=== PATIENT | male | born 1945 ===

== ENCOUNTER 2023-08-04 11:26 | Inpatient (IN) | payer MEDICARE ==
[2023-08-04 12:21] LABS: #Basophils 0.1 thou/uL (0.0-0.2); #Eosinphils 0.2 thou/uL (0.0-0.7); #Monocytes 1.5 thou/uL (0.11-0.59); #Neutrophils 11.5 thou/uL (1.40-6.50); %Basophils 0.6 % (0.0-1.0); %Eosinophils 1.6 % (0.0-10.0); %Lymphocytes 10.4 % (21.0-51.0); %Monocytes 9.5 % (0.0-10.0); %Neutrophils 75.2 % (42.0-75.0); Hematocrit 42.4 % (42.0-52.0); Hemoglobin 14.7 g/dL (14.0-18.0); Mean Corpuscular HGB CONC 34.7 g/dL (32.0-36.0); Mean Corpuscular Hemoglobin 32.5 pg (27.0-31.0); Mean Corpuscular Volume 93.6 fl (78.0-98.0); Mean Platelet Volume 9.7 fL (7.4-10.4); Platelet Count 168 10x3/uL (130-400); RBC Distribution Width 13.9 % (11.5-14.5); Red Blood Cell (RBC) Count 4.53 mill/uL (4.70-6.10); White Blood Cell (WBC) Count 15.3 10x3/uL (4.8-10.8)
[2023-08-04 12:46] LABS: Anion Gap 14 mmol/L (10-20); Carbon Dioxide 25 mmol/L (23-31); Chloride 96 mmol/L (98-107); Potassium 3.9 mmol/L (3.5-5.1); Sodium 131 mmol/L (136-145)
[2023-08-04 12:47] LABS: ALT (SGPT) 22 U/L (8-55); AST (SGOT) 22 U/L (5-34); Alkaline Phosphatase 127 U/L (40-110); BUN (Urea Nitrogen) 58 mg/dL (8.4-25.7); Bilirubin, Total 1.8 mg/dL (0.2-1.2); Calc. Creatinine Clearance 0 mL/min (70-130); Calcium 12.1 mg/dL (7.8-10.44); Estimated GFR 20; Globulin 2.8 g/dL (2.4-3.5); Glucose 110 mg/dL (83-110); Lipase 35 U/L (8-78); Magnesium 2.5 mg/dL (1.6-2.6); Protein, Total 6.8 g/dL (5.8-8.1)
[2023-08-04 12:50] LABS: Troponin I 0.013 ng/mL (< 0.028)
[2023-08-04] MEDS ORDERED: Ondansetron ODT 4 MG TAB PO PRN (14:53)
[2023-08-04] MEDS ORDERED: Ondansetron PF 4 MG/2 ML Vial IVP PRN (14:53)
[2023-08-04] MEDS ORDERED: Sodium Chloride 0.9% 1,000 ML IV SCH ×2 (15:00→17:36)
[2023-08-04] MEDS ORDERED: Piperacillin/Tazobactam 3.375 GM in Sodium Chloride 0.9% 100 ML IVPB SCH (15:30)
[2023-08-04] MEDS ORDERED: Piperacillin/Tazobactam 4.5 GM VIAL ONE (16:23)
[2023-08-04] MEDS ORDERED: Sodium Chloride 0.9% 100 ML ONE (16:23)
[2023-08-04 21:50] VITALS: BMI 29.5
[2023-08-04] MEDS: Piperacillin/Tazobactam 3.375 GM in Sodium Chloride 0.9% 100 ML IVPB SCH (23:50)
[2023-08-05 04:46] LABS: #Basophils 0.1 thou/uL (0.0-0.2); #Eosinphils 0.2 thou/uL (0.0-0.7); #Monocytes 1.2 thou/uL (0.11-0.59); #Neutrophils 10.3 thou/uL (1.40-6.50); %Basophils 0.6 % (0.0-1.0); %Eosinophils 1.2 % (0.0-10.0); %Lymphocytes 7.7 % (21.0-51.0); %Monocytes 9.4 % (0.0-10.0); Hematocrit 36.8 % (42.0-52.0); Hemoglobin 12.4 g/dL (14.0-18.0); Mean Corpuscular HGB CONC 33.7 g/dL (32.0-36.0); Mean Corpuscular Hemoglobin 32.3 pg (27.0-31.0); Mean Corpuscular Volume 95.8 fl (78.0-98.0); Mean Platelet Volume 10.2 fL (7.4-10.4); Platelet Count 153 10x3/uL (130-400); RBC Distribution Width 13.8 % (11.5-14.5); Red Blood Cell (RBC) Count 3.84 mill/uL (4.70-6.10)
[2023-08-05 05:21] LABS: Anion Gap 15 mmol/L (10-20); BUN (Urea Nitrogen) 58 mg/dL (8.4-25.7); Calc. Creatinine Clearance 24 mL/min (70-130); Calcium 10.9 mg/dL (7.8-10.44); Carbon Dioxide 25 mmol/L (23-31); Chloride 97 mmol/L (98-107); Estimated GFR 18; Glucose 110 mg/dL (83-110); Potassium 4.4 mmol/L (3.5-5.1); Sodium 133 mmol/L (136-145)
[2023-08-05 05:25] LABS: Bilirubin Negative (Negative); Blood, Urine Negative (Negative); CAUTI Indications for Culture Dysuria,urgency,freq; Clarity Clear (Clear); Glucose, Urine (Dipstick) Normal (Negative); Ketone, Urine Negative (Negative); Leukocyte Negative Leu/uL (Negative); Nitrite Negative (Negative); Protein, Urine (Dipstick) Negative (Neg-Trace); RBC/HPF 0-3 HPF (0-3); Specific Gravity, Urine 1.016 (1.002-1.036); Squamous Epithelial None Seen HPF (0-3); Urobilinogen Normal mg/dL (Less than 2); WBC/HPF None Seen HPF (0-3); pH, Urine 6.5 (5.0-9.0)
[2023-08-05 05:26] LABS: Bacteria/HPF 1+ HPF (None Seen)
[2023-08-05 05:27] LABS: Urine Culture Reflex No No
[2023-08-05] MEDS: Piperacillin/Tazobactam 3.375 GM in Sodium Chloride 0.9% 100 ML IVPB SCH ×3 (07:59→23:47)
[2023-08-05] MEDS: Ferrous Sulfate 325 MG TAB PO SCH (08:26)
[2023-08-05] MEDS: DULoxetine 60 MG CAP PO SCH (08:26)
[2023-08-05] MEDS: Tamsulosin HCl 0.4 MG CAP PO SCH (08:26)
[2023-08-05] MEDS: Folic Acid 1 MG TAB PO SCH (08:26)
[2023-08-05] MEDS: Finasteride 5 MG TAB PO SCH (08:27)
[2023-08-05] MEDS: Allopurinol 300 MG TAB PO SCH (08:28)
[2023-08-05] MEDS: Lactulose 20 GM (30 mL) UDCUP PO SCH (08:37)
[2023-08-05] MEDS ORDERED: Sodium Chloride 0.9% 1,000 ML IV SCH (11:30)
[2023-08-05 16:17] LABS: Creatinine, Urine 75.91 mg/dL (63-166)
[2023-08-05] MEDS: Sodium Chloride 0.9% 1,000 ML IV SCH ×2 (17:52→23:23)
[2023-08-06] MEDS: Acetaminophen 325 MG TAB PO PRN (05:04)
[2023-08-06 05:10] LABS: #Basophils 0.1 thou/uL (0.0-0.2); #Eosinphils 0.3 thou/uL (0.0-0.7); #Monocytes 0.9 thou/uL (0.11-0.59); #Neutrophils 6.6 thou/uL (1.40-6.50); %Basophils 0.9 % (0.0-1.0); %Lymphocytes 11.4 % (21.0-51.0); %Monocytes 9.7 % (0.0-10.0); %Neutrophils 72.2 % (42.0-75.0); Hemoglobin 11.4 g/dL (14.0-18.0); Mean Corpuscular HGB CONC 32.6 g/dL (32.0-36.0); Mean Corpuscular Hemoglobin 31.5 pg (27.0-31.0); Mean Corpuscular Volume 96.7 fl (78.0-98.0); Mean Platelet Volume 9.8 fL (7.4-10.4); Platelet Count 129 10x3/uL (130-400); Red Blood Cell (RBC) Count 3.62 mill/uL (4.70-6.10); White Blood Cell (WBC) Count 9.1 10x3/uL (4.8-10.8)
[2023-08-06 05:36] LABS: Anion Gap 11 mmol/L (10-20); BUN (Urea Nitrogen) 49 mg/dL (8.4-25.7); Calc. Creatinine Clearance 27 mL/min (70-130); Calcium 9.3 mg/dL (7.8-10.44); Carbon Dioxide 26 mmol/L (23-31); Chloride 103 mmol/L (98-107); Estimated GFR 21; Glucose 91 mg/dL (83-110); Potassium 3.9 mmol/L (3.5-5.1); Sodium 136 mmol/L (136-145)
[2023-08-06] MEDS: Lactulose 20 GM (30 mL) UDCUP PO SCH (08:53)
[2023-08-06] MEDS: Allopurinol 300 MG TAB PO SCH (08:53)
[2023-08-06] MEDS: Tamsulosin HCl 0.4 MG CAP PO SCH (08:53)
[2023-08-06] MEDS: Ferrous Sulfate 325 MG TAB PO SCH (08:53)
[2023-08-06] MEDS: Finasteride 5 MG TAB PO SCH (08:53)
[2023-08-06] MEDS: DULoxetine 60 MG CAP PO SCH (08:53)
[2023-08-06] MEDS: Folic Acid 1 MG TAB PO SCH (08:53)
[2023-08-06] MEDS: Sodium Chloride 0.9% 1,000 ML IV SCH ×3 (11:23→23:50)
[2023-08-06] MEDS: Piperacillin/Tazobactam 3.375 GM in Sodium Chloride 0.9% 100 ML IVPB SCH ×2 (13:03→23:47)
[2023-08-07 04:55] LABS: #Eosinphils 0.2 thou/uL (0.0-0.7); #Monocytes 0.7 thou/uL (0.11-0.59); #Neutrophils 4.9 thou/uL (1.40-6.50); %Basophils 0.6 % (0.0-1.0); %Eosinophils 3.3 % (0.0-10.0); %Lymphocytes 14.7 % (21.0-51.0); %Monocytes 9.3 % (0.0-10.0); %Neutrophils 69.4 % (42.0-75.0); Hematocrit 34.2 % (42.0-52.0); Hemoglobin 11.1 g/dL (14.0-18.0); Mean Corpuscular HGB CONC 32.5 g/dL (32.0-36.0); Mean Corpuscular Hemoglobin 32.2 pg (27.0-31.0); Mean Corpuscular Volume 99.1 fl (78.0-98.0); Platelet Count 121 10x3/uL (130-400); RBC Distribution Width 14.1 % (11.5-14.5); Red Blood Cell (RBC) Count 3.45 mill/uL (4.70-6.10)
[2023-08-07 05:23] LABS: Anion Gap 9 mmol/L (10-20); BUN (Urea Nitrogen) 39 mg/dL (8.4-25.7); Calc. Creatinine Clearance 31 mL/min (70-130); Calcium 8.5 mg/dL (7.8-10.44); Carbon Dioxide 25 mmol/L (23-31); Chloride 109 mmol/L (98-107); Estimated GFR 24; Glucose 108 mg/dL (83-110); Potassium 3.9 mmol/L (3.5-5.1); Sodium 139 mmol/L (136-145)
[2023-08-07] MEDS: Acetaminophen 325 MG TAB PO PRN (05:32)
[2023-08-07] MEDS: Allopurinol 300 MG TAB PO SCH (08:24)
[2023-08-07] MEDS: DULoxetine 60 MG CAP PO SCH (08:25)
[2023-08-07] MEDS: Lactulose 20 GM (30 mL) UDCUP PO SCH (08:26)
[2023-08-07] MEDS: Tamsulosin HCl 0.4 MG CAP PO SCH (08:26)
[2023-08-07] MEDS: Finasteride 5 MG TAB PO SCH (08:26)
[2023-08-07] MEDS: Ferrous Sulfate 325 MG TAB PO SCH (08:26)
[2023-08-07] MEDS: Folic Acid 1 MG TAB PO SCH (08:26)
[2023-08-07] MEDS: Sodium Chloride 0.9% 1,000 ML IV SCH (12:35)
[2023-08-07] MEDS: Piperacillin/Tazobactam 3.375 GM in Sodium Chloride 0.9% 100 ML IVPB SCH ×2 (12:39→23:07)
[2023-08-08] MEDS: DULoxetine 60 MG CAP PO SCH (08:10)
[2023-08-08] MEDS: Ferrous Sulfate 325 MG TAB PO SCH (08:10)
[2023-08-08] MEDS: Tamsulosin HCl 0.4 MG CAP PO SCH (08:10)
[2023-08-08] MEDS: Folic Acid 1 MG TAB PO SCH (08:10)
[2023-08-08] MEDS: Allopurinol 300 MG TAB PO SCH (08:10)
[2023-08-08] MEDS: Finasteride 5 MG TAB PO SCH (08:10)
[2023-08-08 08:11] LABS: Albumin 3.2 g/dL (3.4-4.8); Anion Gap 12 mmol/L (10-20); BUN (Urea Nitrogen) 29 mg/dL (8.4-25.7); BUN/Creatinine Ratio 13.06; Calc. Creatinine Clearance 36 mL/min (70-130); Calcium 8.3 mg/dL (7.8-10.44); Carbon Dioxide 21 mmol/L (23-31); Chloride 111 mmol/L (98-107); Estimated GFR 30; Glucose 93 mg/dL (83-110); Phosphorus 2.3 mg/dL (2.3-4.7); Potassium 4.3 mmol/L (3.5-5.1); Sodium 140 mmol/L (136-145)
[2023-08-08] MEDS: Lactulose 20 GM (30 mL) UDCUP PO SCH (08:13)
[2023-08-08] MEDS ORDERED: FLU VACC QS2023(65UP)/MF59C/PF 60 MCG/0.5 ML SYRINGE IM ONE (09:00)
[2023-08-08] MEDS: Sodium Bicarbonate Tab 325 MG TAB PO SCH ×2 (12:07→20:42)
[2023-08-08] MEDS: Piperacillin/Tazobactam 3.375 GM in Sodium Chloride 0.9% 100 ML IVPB SCH ×2 (12:08→23:31)
[2023-08-09] MEDS: Acetaminophen 325 MG TAB PO PRN (00:47)
[2023-08-09] MEDS: Finasteride 5 MG TAB PO SCH (08:30)
[2023-08-09] MEDS: Lactulose 20 GM (30 mL) UDCUP PO SCH (08:30)
[2023-08-09] MEDS: Allopurinol 300 MG TAB PO SCH (08:31)
[2023-08-09] MEDS: Ferrous Sulfate 325 MG TAB PO SCH (08:31)
[2023-08-09] MEDS: DULoxetine 60 MG CAP PO SCH (08:31)
[2023-08-09] MEDS: Sodium Bicarbonate Tab 325 MG TAB PO SCH (08:31)
[2023-08-09] MEDS: Tamsulosin HCl 0.4 MG CAP PO SCH (08:31)
[2023-08-09] MEDS: Folic Acid 1 MG TAB PO SCH (08:31)
[2023-08-09 11:25] LABS: Albumin 3.1 g/dL (3.4-4.8); Anion Gap 12 mmol/L (10-20); BUN (Urea Nitrogen) 23 mg/dL (8.4-25.7); BUN/Creatinine Ratio 12.17; Calc. Creatinine Clearance 43 mL/min (70-130); Calcium 8.3 mg/dL (7.8-10.44); Carbon Dioxide 20 mmol/L (23-31); Chloride 111 mmol/L (98-107); Critical Call Chemistry NUR.JL7 @1125; Estimated GFR 36; Glucose 164 mg/dL (83-110); Phosphorus 1.4 mg/dL (2.3-4.7); Potassium 3.8 mmol/L (3.5-5.1); Sodium 139 mmol/L (136-145)
[2023-08-09] MEDS ORDERED: PHOS-NAK 1 PKT PACK PO SCH (11:45)
[2023-08-09 11:55] VITALS: BP 106/78; TEMP 97.9
== END 2023-08-09 11:57 | disposition home or self-care (01) | DRG 391 ==
LOC: ERS 11:26 → ERHOLD 14:30 → OBSVTOIN 17:25 → T4-A 18:15
PROVIDERS: ADMIT Hospitalist; ATTEND Family Medicine
DX: K57.32 Diverticulitis of large intestine without perforation or abscess without bleeding (principal); J96.01 Acute respiratory failure with hypoxia; N17.9 Acute kidney failure, unspecified; E87.1 Hypo-osmolality and hyponatremia; E87.20 Acidosis, unspecified; K74.60 Unspecified cirrhosis of liver; K52.9 Noninfective gastroenteritis and colitis, unspecified; I95.9 Hypotension, unspecified; M10.9 Gout, unspecified; Z79.899 Other long term (current) drug therapy; N18.30 Chronic kidney disease, stage 3 unspecified; E78.5 Hyperlipidemia, unspecified; N40.1 Benign prostatic hyperplasia with lower urinary tract symptoms; E83.52 Hypercalcemia; E83.39 Other disorders of phosphorus metabolism
CPT/HCPCS: 36415; 71045; 74176; 76770; 78451; 80048; 80053; 80069; 81001; 82306; 82550; 82570; 83690; 83735; 83880; 83970; 84156; 84300; 84484; 84540; 85025; 85379; 87040; 93005; 93306; A9540; J2543; J3490; J7050